=== PATIENT | female | born 1995 | race Caucasian/White ===

== ENCOUNTER 2016-08-29 13:25 | Outpatient (CLI) | payer SELFPAY ==
[2016-08-29 13:48] VITALS: BP 118/74
[2016-08-29] MEDS ORDERED: VISTARIL PO ONE (17:20)
== END 2016-08-29 17:58 | disposition home or self-care (01) ==
LOC: TRG 13:25
PROVIDERS: ATTEND Specialist
DX: O77.9 Labor and delivery complicated by fetal stress, unspecified (principal); O47.9 False labor, unspecified; Z3A.00 Weeks of gestation of pregnancy not specified
CPT/HCPCS: 59025; Q0177

== ENCOUNTER 2016-08-30 12:31 | Inpatient (IN) | payer OTHER ==
[2016-08-30] MEDS ORDERED: LACTATED RINGERS 1,000 ML ONE (15:05)
[2016-08-30] MEDS ORDERED: BRETHINE SUB-Q PRN (15:09)
[2016-08-30] MEDS ORDERED: ZOFRAN IV PRN (15:09)
[2016-08-30] MEDS ORDERED: SUBLIMAZE IV PRN (15:09)
[2016-08-30] MEDS ORDERED: MINERAL OIL PO PRN (15:09)
[2016-08-30] MEDS ORDERED: ePHEDrine SULFATE IV PRN ×2 (15:09→17:07)
[2016-08-30] MEDS ORDERED: STADOL IV PRN (15:09)
[2016-08-30] MEDS ORDERED: BRETHINE IVP PRN (15:09)
[2016-08-30] MEDS ORDERED: PITOCin/NS 30 UNIT/500ML 500 ML IV SCH ×2 (16:00→18:00)
[2016-08-30] MEDS ORDERED: PITOCin/NS 20 UNIT/1000ML DRIP 1,000 ML IV SCH (16:00)
[2016-08-30] MEDS ORDERED: LACTATED RINGERS 1,000 ML IV SCH (16:00)
[2016-08-30 16:33] LABS: Hematocrit 39.1 % (30.3-42.9); Hemoglobin 13.2 gm/dl (10.1-14.3); Mean Corpuscular HGB Conc 34 % (30-34); Mean Corpuscular Hemoglobin 32 pg (28-32); Mean Corpuscular Volume 96 fl (79-97); Platelet Count 275 K/mm3 (140-440); Red Blood Count 4.07 M/mm3 (3.65-5.03); Red Cell Distribution Width 13.6 % (13.2-15.2); White Blood Count 13.9 K/mm3 (4.5-11.0)
[2016-08-30] MEDS ORDERED: NARCAN 2 MG/2 ML IV PRN (17:07)
--- NOTE | 2016-08-30 17:08 | Anesthesia Consultation ---
Anesthesia Consult and Med Hx Date of service: 08/30/16 - Airway Anesthetic Teeth Evaluation: Good ROM Head & Neck: Adequate Mental/Hyoid Distance: Adequate Mallampati Class: Class II Intubation Access Assessment: Probably Good - Pulmonary Exam CTA: Yes - Cardiac Exam Cardiac Exam: RRR - Pre-Operative Health Status ASA Pre-Surgery Classification: ASA2 Proposed Anesthetic Plan: Epidural, Spinal - Pulmonary Hx Asthma: No COPD: No Hx Pneumonia: No - Cardiovascular System Hx Hypertension: No - Central Nervous System Hx Seizures: No Hx Psychiatric Problems: No - Endocrine Hx Renal Disease: No Hx End Stage Renal Disease: No Hx Hypothyroidism: No Hx Hyperthyroidism: No - Hematic Hx Anemia: No Hx Sickle Cell Disease: No - Other Systems Hx Alcohol Use: No - Additional Comments Anesthesia Medical History Comments: +
[2016-08-30] MEDS ORDERED: fentaNYL-BUPIV 2 MCG/ML-0.125% 100 ML EPIDURAL SCH (18:00)
--- NOTE | 2016-08-30 18:30 | History and Physical Report ---
History of Present Illness Date of examination: 08/30/16 Date of admission: 08/30/16 14:49 Chief complaint: I'm in labor History of present illness: Patient is a 21 year old who presents in active labor with EDC 09/08/2016. She started her care at 12 weeks at [facility]. She has had an uncomplicated course Past History Past Medical History: no pertinent history Past Surgical History: no surgical history Social history: single - Obstetrical History Expected Date of Delivery: 09/08/16 Actual Gestation: 38 Week(s) 5 Day(s) : 1 Medications and Allergies Allergies Allergy/AdvReac Type Severity Reaction Status Date / Time No Known Allergies Allergy Unverified 08/29/16 14:01 Home Medications Medication Instructions Recorded Confirmed Last Taken Type No Known Home Medications [No 08/30/16 08/30/16 Unknown History Reported Home Medications] Active Meds: Active Medications Butorphanol Tartrate (Stadol) 1 mg IV Q2H PRN PRN Reason: Pain, Moderate (4-6) Fentanyl (Sublimaze) 100 mcg IV Q2H PRN PRN Reason: Labor Pain Last Admin: 08/30/16 16:37 Dose: 100 mcg Lactated Ringer's (Lactated Ringers) 1,000 mls @ 125 mls/hr IV DIRECT ELSA Last Admin: 08/30/16 17:59 Dose: 125 mls/hr Oxytocin/Sodium Chloride (Pitocin/Ns 20 Unit/1000ml Drip) 1,000 mls @ 125 mls/ hr IV DIRECT ELSA Oxytocin/Sodium Chloride (Pitocin/Ns 30 Unit/500ml) 500 mls @ 1 mls/hr IV TITR ELSA; 1 MILLIUNITS/MIN PRN Reason: Protocol Fentanyl/Bupivacaine/Sodium Chlor (Fentanyl-Bupiv 2 Mcg/Ml-0.125%) 100 mls @ 12 mls/hr EPIDURAL TITR ELSA PRN Reason: Protocol Last Admin: 08/30/16 17:57 Dose: 12 mls/hr Oxytocin/Sodium Chloride (Pitocin/Ns 30 Unit/500ml) 500 mls @ 4 mls/hr IV TITR ELSA; 4 MILLIUNITS/MIN PRN Reason: Protocol Last Admin: 08/30/16 18:00 Dose: 4 mls/hr Mineral Oil (Mineral Oil) 30 ml PO QHS PRN PRN Reason: Constipation Ondansetron HCl (Zofran) 4 mg IV Q8H PRN PRN Reason: Nausea And Vomiting Review of Systems All systems: negative Genitourinary: leakage of fluid, contractions - Vital Signs Vital signs: Vital Signs Pulse BP 98 H 131/88 08/30/16 12:46 08/30/16 12:46 Temp Pulse Resp BP Pulse Ox 98.1 F 66 16 137/88 99 08/30/16 16:44 08/30/16 18:22 08/30/16 17:57 08/30/16 18:19 08/30/16 18:22 - Physical Exam Cardiovascular: Regular rate, Normal S1, Normal S2 Lungs: Positive: Clear to auscultation, Normal air movement Abdomen: Positive: normal appearance, soft, normal bowel sounds Genitourinary (Female): Positive: normal external genitalia, normal perenium Vulva: both: normal Vagina: Positive: normal moisture Uterus: Positive: normal size Extremities: Positive: normal - Obstetrical FHR: auscultation normal Cervical Dilatation: 4 Cervical Effacement Percentage: 90 station: -3 Uterine Contraction Pattern: Regular Uterine Contraction Intensity: Moderate Results Result Diagrams: 08/30/16 16:10 Abnormal lab results 08/30/16 Range/Units 16:10 WBC 13.9 H (4.5-11.0) K/mm3 All other labs normal. Assessment and Plan Patient is a 21 year old in active labor at 38.5 weeks. Admit to L&D. Augment if needed. Anticipate .
--- NOTE | 2016-08-30 22:53 | Procedure Note ---
OB Delivery Note - Delivery Date of Delivery: 08/30/16 Surgeon: TREVOR BEACH Estimated blood loss: 200cc - Vaginal Delivery presentation: vertex Delivery position: OA Intrapartum events: none Delivery induction: none Delivery augmentation: pitocin Delivery monitor: external FHT, external uterine Route of delivery: Delivery placenta: spontaneous Delivery cord: 3 umbilical vessels Episiotomy: none Delivery laceration: 2nd degree Delivery repair: vicryl Anesthesia: epidural Delivery comments: Viable male delivered over intact perineum with loose nuchal reduced on perineum. Apgars 8,9. Weight 7 pounds 3 ounces. Infant placed on maternal abdomen. Cord clamped and cut when done pulsing. Placenta delivered spontaneously and intact with 3vc. 2nd degree laceration repaired with 2.0 vicryl. Patient tolerated procedure well. Excellent hemostasis. - A at 1 minute: 8 at 5 minutes: 9 Gender: Male (7 pounds 3 ounces)
[2016-08-31] MEDS ORDERED: ZOFRAN IV PRN (00:11)
[2016-08-31] MEDS ORDERED: SODIUM CHLORIDE FLUSH SYRINGE 10 ML IV PRN (00:11)
[2016-08-31] MEDS ORDERED: PHENERGAN PO PRN (00:11)
[2016-08-31] MEDS ORDERED: TYLENOL PO PRN (00:11)
[2016-08-31] MEDS ORDERED: DERMOPLAST TP PRN (00:11)
[2016-08-31] MEDS ORDERED: NORCO 5/325 PO PRN (00:11)
[2016-08-31] MEDS ORDERED: LANSINOH TP PRN (00:11)
[2016-08-31] MEDS ORDERED: PHENERGAN PR PRN (00:11)
[2016-08-31] MEDS ORDERED: MILK OF MAGNESIA PO PRN (00:11)
[2016-08-31] MEDS ORDERED: DULCOLAX PR PRN (00:11)
[2016-08-31] MEDS ORDERED: TUCKS PAD TP PRN (00:11)
[2016-08-31] MEDS ORDERED: BENADRYL PO PRN (00:11)
[2016-08-31] MEDS: MOTRIN PO SCH ×5 (01:15→23:34)
--- NOTE | 2016-08-31 08:54 | Progress Note ---
Assessment and Plan PPD 1 s/p . Doing well. Plan for discharge on tomorrow. Subjective - Subjective Date of service: 08/31/16 Interval history: Patient is a 21 year old who presents in active labor with EDC 09/08/2016. She started her care at 12 weeks at [facility]. She has had an uncomplicated course Patient reports: appetite normal, voiding normally, pain well controlled [place]: doing well Objective - Vital Signs Latest vital signs: Vital Signs Temp Pulse Pulse Resp BP BP Pulse Ox 08/31/16 04:30 97.9 F 81 18 120/67 08/31/16 00:55 99.3 F 58 L 18 133/81 08/30/16 23:33 62 125/78 08/30/16 23:18 80 135/77 08/30/16 23:03 80 139/79 08/30/16 22:48 77 138/65 08/30/16 22:42 89 94 08/30/16 22:37 78 98 08/30/16 22:33 81 94/46 08/30/16 22:32 71 97 08/30/16 22:27 88 97 08/30/16 22:22 76 96 08/30/16 22:18 65 89 08/30/16 22:17 77 98 08/30/16 22:12 71 94 08/30/16 22:07 58 L 97 08/30/16 22:05 72 186/99 93 08/30/16 22:02 73 98 08/30/16 21:59 58 L 93 08/30/16 21:57 63 99 08/30/16 21:52 65 85 08/30/16 21:49 70 146/90 08/30/16 21:47 64 100 08/30/16 21:46 91 08/30/16 21:38 70 94 08/30/16 21:34 67 142/92 08/30/16 21:33 65 100 08/30/16 21:29 70 91 08/30/16 21:28 69 98 08/30/16 21:23 69 94 08/30/16 21:20 98.1 F 08/30/16 21:18 67 133/90 91 08/30/16 21:13 74 99 08/30/16 21:08 60 98 08/30/16 21:04 76 92 08/30/16 21:03 63 99 08/30/16 20:58 65 99 08/30/16 20:53 76 97 08/30/16 20:51 69 94 08/30/16 20:49 68 155/92 08/30/16 20:48 72 99 08/30/16 20:43 68 99 08/30/16 20:38 67 97 08/30/16 20:35 83 154/112 81 L 08/30/16 20:33 86 97 08/30/16 20:28 66 94 08/30/16 20:27 68 94 08/30/16 20:23 80 97 08/30/16 20:19 74 133/82 08/30/16 20:18 72 97 08/30/16 20:13 85 96 08/30/16 20:08 76 98 08/30/16 20:04 74 130/84 08/30/16 20:03 71 98 08/30/16 19:58 69 97 08/30/16 19:53 74 98 08/30/16 19:49 76 140/85 08/30/16 19:48 71 97 08/30/16 19:43 71 97 08/30/16 19:38 76 98 08/30/16 19:33 74 161/95 08/30/16 19:32 77 95 08/30/16 19:29 75 94 08/30/16 19:28 69 98 08/30/16 19:23 67 97 08/30/16 19:18 63 134/82 98 08/30/16 19:13 72 98 08/30/16 19:12 98.1 F 18 08/30/16 19:08 82 98 08/30/16 19:04 78 136/89 08/30/16 19:03 83 97 08/30/16 19:00 65 94 08/30/16 18:58 72 99 08/30/16 18:53 76 97 08/30/16 18:50 79 94 08/30/16 18:48 75 142/91 96 08/30/16 18:43 77 97 08/30/16 18:38 77 92 08/30/16 18:37 85 93 08/30/16 18:35 77 130/87 08/30/16 18:33 70 99 08/30/16 18:27 77 99 08/30/16 18:22 66 99 08/30/16 18:19 75 137/88 08/30/16 18:18 69 99 08/30/16 18:13 81 92 08/30/16 18:08 69 98 08/30/16 18:05 71 90 08/30/16 18:04 74 137/84 08/30/16 18:03 79 90 08/30/16 17:58 75 98 08/30/16 17:57 16 08/30/16 17:53 77 99 08/30/16 17:49 72 130/85 08/30/16 17:48 82 99 08/30/16 17:43 74 98 08/30/16 17:38 74 99 08/30/16 17:35 67 135/85 08/30/16 17:33 77 99 08/30/16 17:28 80 97 08/30/16 17:27 68 135/62 08/30/16 17:21 72 131/77 08/30/16 17:18 93 H 123/68 98 08/30/16 17:14 86 86 08/30/16 17:13 96 H 98 08/30/16 17:08 103 H 98 08/30/16 17:03 85 97 08/30/16 16:44 98.1 F 16 97 08/30/16 16:36 86 136/87 08/30/16 13:17 89 97 08/30/16 13:11 94 H 96 08/30/16 13:06 91 H 97 08/30/16 13:01 81 97 08/30/16 12:57 92 H 97 08/30/16 12:51 84 97 08/30/16 12:50 98.2 F 90 18 131/88 97 08/30/16 12:47 102 H 97 08/30/16 12:46 98 H 131/88 Intake and Output 08/30/16 08/31/16 08/31/16 22:59 06:59 14:59 Intake Total 4123 Output Total 1000 Balance 3123 Intake: IV 2225 Lactated Ringers 1,000 ml 900 @ 125 mls/hr IV DIRECT ELSA Rx#:[id number] PITOCin/NS 20 UNIT/1000ML 425 DRIP 1,000 ML @ 125 mls/ hr IV DIRECT ELSA Rx#: [id number] PITOCin/NS 30 UNIT/500ML 900 500 ML @ 4 MILLIUNITS/MIN 4 mls/hr IV TITR ELSA Rx# :[id number] Intake, Free Water 240 Other 1658 Output: Urine 1000 Indwelling Catheter 250 Void 750 Other: Intake, Other Source Saline Solution Total, Intake Amount 1658 Total, Output Amount 600 # Voids Void 1 Estimated Blood Loss 200 - Exam Cardiovascular: Present: Regular rate, Normal S1, Normal S2 Lungs: Present: Clear to auscultation, Normal air movement Abdomen: Present: normal appearance, soft, normal bowel sounds Uterus: Present: normal, firm Extremities: Present: normal - Labs Labs: Abnormal lab results 08/30/16 Range/Units 16:10 WBC 13.9 H (4.5-11.0) K/mm3
[2016-08-31 11:27] LABS: Hematocrit 31.5 % (30.3-42.9); Hemoglobin 10.4 gm/dl (10.1-14.3)
[2016-08-31] MEDS: PRENATAL VITAMIN PO SCH (12:30)
[2016-08-31] MEDS: COLACE PO SCH ×2 (12:30→23:35)
[2016-09-01] MEDS: MOTRIN PO SCH ×2 (06:13→11:38)
--- NOTE | 2016-09-01 06:23 | Discharge Summary ---
Providers - Providers Date of Admission: 08/30/16 14:49 Date of discharge: 09/01/16 Attending physician: ALVARO JACKSON Primary care physician: ALVARO JACKSON Hospitalization Reason for admission: active labor Delivery: Procedure details: s/p Episiotomy: none Laceration: 2nd degree Incision: normal, intact Other procedures: none complications: none Discharge diagnosis: IUP at term delivered Tamms baby: male Hospital course: routine post op course Condition at discharge: Good Disposition: DISCHARGED TO HOME OR SELFCARE - Discharge Diagnoses (1) (normal spontaneous vaginal delivery) Status: Acute Plan - Discharge Medications Prescriptions: HYDROcodone/APAP 5-325 [[place] 5-325 mg TAB] 2 each PO Q6H PRN #30 tablet PRN Reason: Pain, Moderate (4-6) Ibuprofen [Motrin 600 MG tab] 600 mg PO Q6HR #30 tablet - Provider Discharge Summary Activity: routine, no sex for 6 weeks, no heavy lifting 4 weeks, no strenuous exercise Diet: routine Instructions: routine Additional instructions: [] Smoking cessation referral if applicable(refer to patient education folder for contact #) [] Refer to [facility]'s [facility] Booklet Call your doctor immediately for: * Fever > 100.5 * Heavy vaginal bleeding ( >1 pad per hour) * Severe persistent headache * Shortness of breath * Reddened, hot, painful area to leg or breast * Drainage or odor from incision. * Keep incision clean and dry at all times and follow doctor's instructions regarding bathing/showering - Follow up plan Follow up: ALVARO JACKSON MD [Primary Care Provider] - 6 Weeks
[2016-09-01 09:20] VITALS: BP 128/80
[2016-09-01] MEDS: COLACE PO SCH (11:53)
[2016-09-01] MEDS: PRENATAL VITAMIN PO SCH (11:53)
== END 2016-09-01 15:17 | disposition home or self-care (01) | DRG 775 ==
LOC: TRG 12:31 → LD 14:49 → OB 08-31 00:32
PROVIDERS: ADMIT Specialist; ATTEND Specialist
PROC: 10E0XZZ Delivery of Products of Conception, External Approach (ICD-10-PCS; principal; 2016-08-30)
PROC: 0KQM0ZZ Repair Perineum Muscle, Open Approach (ICD-10-PCS; 2016-08-30)
PROC: 3E0S3CZ (ICD-10-PCS; 2016-08-30)
PROC: 00HU33Z Insertion of Infusion Device into Spinal Canal, Percutaneous Approach (ICD-10-PCS; 2016-08-30)
DX: O69.81X0 Labor and delivery complicated by cord around neck, without compression, not applicable or unspecified (principal); O70.1 Second degree perineal laceration during delivery; Z37.0 Single live birth; Z3A.38 38 weeks gestation of pregnancy
CPT/HCPCS: 36415; 85014; 85018; 85027; 86850; 86900; 86901; 99211; G0463; J2590; J3010; J7120

== ENCOUNTER 2020-12-02 21:20 | Outpatient (CLI) | payer SELFPAY ==
[2020-12-02 21:55] VITALS: BP 122/77
[2020-12-02] MEDS ORDERED: LACTATED RINGERS 1,000 ML IV ONE (22:29)
[2020-12-02] MEDS ORDERED: MORPHINE 4 MG/1 ML INJ IV ONE (22:29)
[2020-12-02] MEDS ORDERED: hydrOXYzine HCL 100 MG/2 ML INJ IM ONE (22:30)
[2020-12-03] MEDS ORDERED: MORPHINE 4 MG/1 ML INJ IV ONE (00:39)
== END 2020-12-03 00:58 | disposition home or self-care (01) ==
LOC: TRG 21:20 → APU 21:23 → TRG 12-03 00:58
PROVIDERS: ATTEND Obstetrics & Gynecology
DX: O62.9 Abnormality of forces of labor, unspecified (principal); O13.3 Gestational [pregnancy-induced] hypertension without significant proteinuria, third trimester; Z3A.37 37 weeks gestation of pregnancy
CPT/HCPCS: 96361; 96372; 96374; J2270; J3410; J7120

== ENCOUNTER 2020-12-11 17:10 | Inpatient (IN) | payer OTHER ==
[2020-12-11] MEDS ORDERED: ACETAMINOPHEN 325 MG TAB PO PRN (22:19)
[2020-12-11] MEDS ORDERED: TERBUTALINE 1 MG/1 ML INJ SUB-Q PRN (22:19)
[2020-12-11] MEDS ORDERED: ePHEDrine SULFATE 50 MG/1 ML INJ IV PRN (22:19)
[2020-12-11] MEDS ORDERED: NALOXONE 0.4 MG/1 ML INJ IV PRN (22:19)
[2020-12-11] MEDS ORDERED: PROMETHAZINE 25 MG TAB PO PRN (22:19)
[2020-12-11] MEDS ORDERED: BUTORPHANOL 2 MG/1 ML INJ IV PRN ×2 (22:19)
[2020-12-11] MEDS ORDERED: MINERAL OIL 30 ML ORAL LIQD PO PRN (22:19)
[2020-12-11] MEDS ORDERED: LIDOCAINE (2%) 20 MG/1 ML VIAL 20 ML MDV INFILTRATI ONE (22:19)
--- NOTE | 2020-12-11 22:51 | History and Physical Report ---
History of Present Illness Date of examination: 12/11/20 Date of admission: 12/11/20 Chief complaint: contractions, early labor History of present illness: 25 yo at 39w1d MELINDA 12/17/20 with PNC at [facility] c/b hx PIH in previous , elevated 1hr GTT, nl 3 hr GTT presenting with contractions, found to be in early labor, 3 cm. Reported possible ROM, but Amni+ negative. Denies vaginal bleeding. No PIH symptoms. PNC reviewed A pos, Ab neg Hct 36.1 Pap NILM Rubella Immune RPR NR Ucx neg HbSAG NR HIV neg GCCT neg MSAFP neg 1hr GTT 136 3hr GTT 71/151/125/117 GBS neg Past History Past Medical History: no pertinent history Past Surgical History: no surgical history Family/Genetic History: none Social history: no significant social history - Obstetrical History : 2 Para: 1 Hx # Term Pregnancies: 1 Number of Living Children: 1 Medications and Allergies Allergies Allergy/AdvReac Type Severity Reaction Status Date / Time azithromycin Allergy Itching Verified 12/02/20 22:29 Home Medications Medication Instructions Recorded Confirmed Last Taken Type HYDROcodone/APAP 5-325 [[place] 2 each PO Q6H PRN #30 tablet 09/01/16 Unknown Rx 5-325 mg TAB] Ibuprofen [Motrin 600 MG tab] 600 mg PO Q6HR #30 tablet 09/01/16 Unknown Rx Active Meds: Active Medications Acetaminophen (Acetaminophen 325 Mg Tab) 650 mg PO Q4H PRN PRN Reason: Pain, Mild (1-3) Butorphanol Tartrate (Butorphanol 2 Mg/1 Ml Inj) 1 mg IV Q2H PRN PRN Reason: Pain, Moderate(4-6) LABOR PAIN Butorphanol Tartrate (Butorphanol 2 Mg/1 Ml Inj) 2 mg IV Q2H PRN PRN Reason: Pain , Severe (7-10) Ephedrine Sulfate (Ephedrine Sulfate 50 Mg/1 Ml Inj) 10 mg IV Q2M PRN PRN Reason: Hypotension Oxytocin/Sodium Chloride (Pitocin/Ns 30 Unit/500ml) 30 units in 500 mls @ 2 mls/hr IV TITR ELSA; Protocol Lactated Ringer's (Lactated Ringers) 1,000 mls @ 125 mls/hr IV DIRECT ELSA Oxytocin/Sodium Chloride (Pitocin/Ns 30 Unit/500ml) 30 units in 500 mls @ 40 mls/hr IV TITR ELSA; Protocol Mineral Oil (Mineral Oil 30 Ml Oral Liqd) 30 ml PO QHS PRN PRN Reason: Constipation Naloxone HCl (Naloxone 0.4 Mg/1 Ml Inj) 0.1 mg IV Q2MIN PRN PRN Reason: Res Rate </= 8 or 02 SAT < 92% Promethazine HCl (Promethazine 25 Mg Tab) 25 mg PO Q6H PRN PRN Reason: Nausea And Vomiting Terbutaline Sulfate (Terbutaline 1 Mg/1 Ml Inj) 0.25 mg SUB-Q ONCE PRN PRN Reason: Hyperstimulation/Hypertonicity Review of Systems All systems: negative (expect HPI) - Vital Signs Vital signs: Vital Signs Pulse BP 105 H 128/82 12/11/20 17:51 12/11/20 17:51 Temp Pulse Resp BP Pulse Ox 98.6 F 85 18 140/83 98 12/11/20 17:53 12/11/20 22:37 12/11/20 17:53 12/11/20 22:27 12/11/20 22:37 - Physical Exam Abdomen: Positive: normal appearance, normal bowel sounds, other (gravid) - Obstetrical FHR: category 1 Uterine Contraction Monitor Mode: External Cervical Dilatation: 3 Cervical Effacement Percentage: 80 station: -1 Uterine Contraction Frequency (min): 5 Uterine Contraction Pattern: Irregular Results All other labs normal. Assessment and Plan - Patient Problems (1) Current Visit: Yes Status: Acute Qualifiers: Weeks of gestation: 39 weeks Qualified Code(s): Z3A.39 - 39 weeks gestation of Plan to address problem: Admit of IOL for early labor at 3 cm at term --Pitocin prn IOL --Epidural prn pain --GBS neg --Anticipate
[2020-12-11] MEDS ORDERED: OXYTOCIN DRIP 30 UNITS/500 ML BAG IV SCH ×2 (23:00)
[2020-12-11 23:03] LABS: Hematocrit 30.5 % (30.3-42.9); Hemoglobin 10.3 gm/dl (10.1-14.3); Mean Corpuscular HGB Conc 34 % (30-34); Mean Corpuscular Volume 88 fl (79-97); Platelet Count 262 K/mm3 (140-440); Red Blood Count 3.45 M/mm3 (3.65-5.03); Red Cell Distribution Width 13.8 % (13.2-15.2)
[2020-12-11] MEDS: LACTATED RINGERS 1,000 ML IV SCH (23:14)
[2020-12-12] MEDS: LACTATED RINGERS 1,000 ML IV SCH ×2 (03:41→10:32)
--- NOTE | 2020-12-12 04:15 | Progress Note ---
Labor Epidural - Labor Epidural Start Time: 03:40 Stop Time: 03:44 Performed by:: AXEL FOSTER Procedure: Patient is requesting a laboring epidural for laboring pain. Patient IDed, H&P reviewed, all questions and concerns were answered, and consent was signed. Timeout was performed at bedside. Patient in sitting position. Sterile prep and drape was performed. [3] ml of 1% lidocaine skin wheal at L[4]- L [5]. 18- gauge Tuohy epidural needle was advanced to loss of resistance with saline technique 5cm. Single dural perforation via 27 guage spinal needle placed through the shaft of Epidural needle. Positive CSF via spinal needle. Negative CSF, negative blood via Epidural needle. Epidural catheter advanced to [10] centimeters. [NEGATIVE] Aspiration [NEGATIVE] test dose. Negative Paresthesia. Sterile dressing applied. Patient tolerated procedure.
[2020-12-12] MEDS ORDERED: ePHEDrine SULFATE 50 MG/1 ML INJ IV PRN (04:20)
[2020-12-12] MEDS ORDERED: NALOXONE 2 MG/2 ML INJ IV PRN (04:20)
--- NOTE | 2020-12-12 04:20 | Anesthesia Consultation ---
Anesthesia Consult and Med Hx Date of service: 12/12/20 - Airway Anesthetic Teeth Evaluation: Good ROM Head & Neck: Adequate Mental/Hyoid Distance: Adequate Mallampati Class: Class II Intubation Access Assessment: Good - Pulmonary Exam CTA: Yes - Cardiac Exam Cardiac Exam: RRR - Pre-Operative Health Status ASA Pre-Surgery Classification: ASA2 Proposed Anesthetic Plan: Epidural - Pulmonary Hx Smoking: No Hx Asthma: No Hx Respiratory Symptoms: No SOB: No COPD: No Home Oxygen Therapy: No Hx Pneumonia: No Hx Sleep Apnea: No - Cardiovascular System Hx Hypertension: No Hx Coronary Artery Disease: No Hx Heart Attack/AMI: No Hx Angina: No Hx Percutaneous Transluminal Coronary Angioplasty (PTCA): No Hx Cardia Arrhythmia: No Hx Pacemaker: No Hx Internal Defibrillator: No Hx Valvular Heart Disease: No Hx Heart Murmur: No Hx Peripheral Vascular Disease: No - Central Nervous System Hx Neuromuscular Disorder: No Hx Seizures: No CVA: No Hx Back Pain: No Hx Psychiatric Problems: No - Gastrointestinal Hx Ulcer: No Hx Gastroesophageal Reflux Disease: Yes - Endocrine Hx Renal Disease: No Hx End Stage Renal Disease: No Hx Cirrhosis: No Hx Liver Disease: No Hx Insulin Dependent Diabetes: No Hx Non-Insulin Dependent Diabetes: No Hx Thyroid Disease: No Hx Hypothyroidism: No Hx Hyperthyroidism: No - Hematic Hx Anemia: No Hx Sickle Cell Disease: No - Other Systems Hx Alcohol Use: No Hx Substance Use: No Hx Cancer: No Hx Obesity: No
[2020-12-12] MEDS ORDERED: fentaNYL-BUPIV 2 MCG/ML-0.125% 200 MCG/100 ML BAG EPIDURAL SCH (05:00)
--- NOTE | 2020-12-12 10:23 | Progress Note ---
Assessment and Plan A: IUP @ 39 2/7 Weeks Category I Tracing Active Labor GBS Negative P: IUPC Placed Continue Pitocin Augmentation Multiple Maternal Position Changes Subjective - Subjective Date of service: 12/12/20 Principal diagnosis: Early Labor Patient reports: movement normal, other (Resting well under epidural anesthesia; starting to feel a slight amount of lower abd pressure) Objective - Vital Signs Vital Signs: Vital Signs - 12hr 12/11/20 12/11/20 12/11/20 22:27 22:32 22:37 Temperature Pulse Rate 84 87 85 Respiratory Rate Blood Pressure 140/83 Blood Pressure [Right] O2 Sat by Pulse 98 98 98 Oximetry 12/11/20 12/11/20 12/11/20 22:42 22:47 22:52 Temperature Pulse Rate 90 92 H 95 H Respiratory Rate Blood Pressure Blood Pressure [Right] O2 Sat by Pulse 98 99 98 Oximetry 12/11/20 12/11/20 12/11/20 22:57 23:02 23:07 Temperature Pulse Rate 101 H 87 99 H Respiratory Rate Blood Pressure Blood Pressure [Right] O2 Sat by Pulse 98 99 98 Oximetry 12/11/20 12/11/20 12/11/20 23:12 23:15 23:17 Temperature Pulse Rate 89 97 H 98 H Respiratory Rate Blood Pressure 116/67 Blood Pressure [Right] O2 Sat by Pulse 98 98 Oximetry 12/11/20 12/11/20 12/11/20 23:22 23:27 23:30 Temperature 98.1 F Pulse Rate 89 93 H 80 Respiratory 18 Rate Blood Pressure Blood Pressure 116/67 [Right] O2 Sat by Pulse 99 99 Oximetry 12/11/20 12/11/20 12/11/20 23:32 23:37 23:42 Temperature Pulse Rate 90 100 H 83 Respiratory Rate Blood Pressure Blood Pressure [Right] O2 Sat by Pulse 98 99 98 Oximetry 12/11/20 12/11/20 12/11/20 23:47 23:52 23:57 Temperature Pulse Rate 76 80 91 H Respiratory Rate Blood Pressure Blood Pressure [Right] O2 Sat by Pulse 99 98 99 Oximetry 12/12/20 12/12/20 12/12/20 00:02 00:03 00:07 Temperature Pulse Rate 94 H 83 93 H Respiratory Rate Blood Pressure 109/59 Blood Pressure [Right] O2 Sat by Pulse 99 98 Oximetry 12/12/20 12/12/2012/12/21 00:12 00:17 00:22 Temperature Pulse Rate 91 H 79 69 Respiratory Rate Blood Pressure Blood Pressure [Right] O2 Sat by Pulse 99 98 100 Oximetry 12/12/20 12/12/20 12/12/20 00:27 00:32 00:34 Temperature Pulse Rate 79 76 75 Respiratory Rate Blood Pressure 117/71 Blood Pressure [Right] O2 Sat by Pulse 99 99 Oximetry 12/12/20 12/12/20 12/12/20 00:37 00:42 00:47 Temperature Pulse Rate 89 90 71 Respiratory Rate Blood Pressure Blood Pressure [Right] O2 Sat by Pulse 99 100 100 Oximetry 12/12/20 12/12/20 12/12/20 00:52 00:57 01:02 Temperature Pulse Rate 78 81 81 Respiratory Rate Blood Pressure Blood Pressure [Right] O2 Sat by Pulse 99 100 99 Oximetry 12/12/20 12/12/20 12/12/20 01:03 01:07 01:12 Temperature Pulse Rate 80 85 77 Respiratory Rate Blood Pressure 120/75 Blood Pressure [Right] O2 Sat by Pulse 99 99 Oximetry 12/12/20 12/12/20 12/12/20 01:17 01:22 01:27 Temperature Pulse Rate 87 68 63 Respiratory Rate Blood Pressure Blood Pressure [Right] O2 Sat by Pulse 100 100 100 Oximetry 12/12/20 12/12/20 12/12/20 01:32 01:35 01:37 Temperature Pulse Rate 73 80 68 Respiratory Rate Blood Pressure 123/75 Blood Pressure [Right] O2 Sat by Pulse 100 100 Oximetry 12/12/20 12/12/20 12/12/20 01:42 01:51 01:56 Temperature Pulse Rate 84 79 69 Respiratory Rate Blood Pressure Blood Pressure [Right] O2 Sat by Pulse 100 100 99 Oximetry 12/12/20 12/12/20 12/12/20 02:01 02:03 02:06 Temperature Pulse Rate 70 80 67 Respiratory Rate Blood Pressure 116/67 Blood Pressure [Right] O2 Sat by Pulse 100 100 Oximetry 12/12/20 12/12/20 12/12/20 02:11 02:16 02:21 Temperature Pulse Rate 67 70 73 Respiratory Rate Blood Pressure Blood Pressure [Right] O2 Sat by Pulse 100 100 100 Oximetry 12/12/20 12/12/20 12/12/20 02:26 02:31 02:35 Temperature Pulse Rate 64 78 71 Respiratory Rate Blood Pressure 125/70 Blood Pressure [Right] O2 Sat by Pulse 100 100 Oximetry 12/12/20 12/12/20 12/12/20 02:36 02:41 02:46 Temperature Pulse Rate 79 77 71 Respiratory Rate Blood Pressure Blood Pressure [Right] O2 Sat by Pulse 100 100 100 Oximetry 12/12/20 12/12/20 12/12/20 02:51 02:56 03:01 Temperature Pulse Rate 86 68 77 Respiratory Rate Blood Pressure Blood Pressure [Right] O2 Sat by Pulse 100 100 100 Oximetry 12/12/20 12/12/20 12/12/20 03:04 03:06 03:11 Temperature Pulse Rate 64 80 55 L Respiratory Rate Blood Pressure 116/69 Blood Pressure [Right] O2 Sat by Pulse 99 100 Oximetry 12/12/20 12/12/20 12/12/20 03:16 03:21 03:26 Temperature Pulse Rate 66 73 83 Respiratory Rate Blood Pressure Blood Pressure [Right] O2 Sat by Pulse 100 100 100 Oximetry 12/12/20 12/12/20 12/12/20 03:31 03:35 03:36 Temperature Pulse Rate 88 77 83 Respiratory Rate Blood Pressure 120/75 Blood Pressure [Right] O2 Sat by Pulse 100 100 Oximetry 12/12/20 12/12/20 12/12/20 03:41 03:44 03:46 Temperature Pulse Rate 77 80 73 Respiratory Rate Blood Pressure 124/71 127/76 Blood Pressure [Right] O2 Sat by Pulse 100 100 Oximetry 12/12/20 12/12/20 12/12/20 03:48 03:51 03:54 Temperature Pulse Rate 87 64 65 Respiratory Rate Blood Pressure 133/89 120/66 99/57 Blood Pressure [Right] O2 Sat by Pulse 100 Oximetry 12/12/20 12/12/20 12/12/20 03:56 03:58 04:00 Temperature Pulse Rate 72 60 62 Respiratory Rate Blood Pressure 109/59 113/59 115/65 Blood Pressure [Right] O2 Sat by Pulse 100 Oximetry 12/12/20 12/12/20 12/12/20 04:01 04:02 04:05 Temperature 97.9 F Pulse Rate 63 62 63 Respiratory 16 Rate Blood Pressure 110/58 Blood Pressure 110/58 [Right] O2 Sat by Pulse 99 100 Oximetry 12/12/20 12/12/20 12/12/20 04:06 04:11 04:16 Temperature Pulse Rate 59 L 60 59 L Respiratory Rate Blood Pressure Blood Pressure [Right] O2 Sat by Pulse 100 99 98 Oximetry 12/12/20 12/12/20 12/12/20 04:21 04:26 04:31 Temperature Pulse Rate 82 72 61 Respiratory Rate Blood Pressure 120/60 Blood Pressure [Right] O2 Sat by Pulse 98 98 98 Oximetry 12/12/20 12/12/20 12/12/20 04:36 04:41 04:46 Temperature Pulse Rate 66 61 63 Respiratory Rate Blood Pressure Blood Pressure [Right] O2 Sat by Pulse 98 99 98 Oximetry 12/12/20 12/12/20 12/12/20 04:51 04:52 04:56 Temperature Pulse Rate 72 80 85 Respiratory Rate Blood Pressure 100/51 Blood Pressure [Right] O2 Sat by Pulse 98 98 Oximetry 12/12/20 12/12/20 12/12/20 05:01 05:06 05:11 Temperature Pulse Rate 96 H 88 66 Respiratory Rate Blood Pressure 109/65 Blood Pressure [Right] O2 Sat by Pulse 98 98 98 Oximetry 12/12/20 12/12/20 12/12/20 05:16 05:21 05:26 Temperature Pulse Rate 59 L 70 63 Respiratory Rate Blood Pressure Blood Pressure [Right] O2 Sat by Pulse 99 98 98 Oximetry 12/12/20 12/12/20 12/12/20 05:31 05:33 05:36 Temperature Pulse Rate 72 57 L 62 Respiratory Rate Blood Pressure 102/63 Blood Pressure [Right] O2 Sat by Pulse 99 99 Oximetry 12/12/20 12/12/20 12/12/20 05:41 05:46 05:51 Temperature Pulse Rate 74 63 66 Respiratory Rate Blood Pressure Blood Pressure [Right] O2 Sat by Pulse 99 99 99 Oximetry 12/12/20 12/12/20 12/12/20 05:52 05:56 06:01 Temperature Pulse Rate 52 L 55 L 58 L Respiratory Rate Blood Pressure 97/57 Blood Pressure [Right] O2 Sat by Pulse 99 99 Oximetry 12/12/20 12/12/20 12/12/20 06:06 06:11 06:12 Temperature Pulse Rate 59 L 63 77 Respiratory Rate Blood Pressure 97/53 Blood Pressure [Right] O2 Sat by Pulse 98 98 Oximetry 12/12/20 12/12/20 12/12/20 06:16 06:21 06:26 Temperature Pulse Rate 72 63 52 L Respiratory Rate Blood Pressure Blood Pressure [Right] O2 Sat by Pulse 99 99 99 Oximetry 12/12/20 12/12/20 12/12/20 06:31 06:36 06:41 Temperature Pulse Rate 65 54 L 70 Respiratory Rate Blood Pressure 99/56 Blood Pressure [Right] O2 Sat by Pulse 99 98 97 Oximetry 12/12/20 12/12/20 12/12/20 06:46 06:51 06:52 Temperature Pulse Rate 53 L 61 67 Respiratory Rate Blood Pressure 100/55 Blood Pressure [Right] O2 Sat by Pulse 99 99 Oximetry 12/12/20 12/12/20 12/12/20 06:56 07:01 07:06 Temperature 97.6 F Pulse Rate 60 70 71 Respiratory 18 Rate Blood Pressure Blood Pressure [Right] O2 Sat by Pulse 100 100 98 Oximetry 12/12/20 12/12/20 12/12/20 07:11 07:12 07:16 Temperature Pulse Rate 77 81 67 Respiratory Rate Blood Pressure 102/60 Blood Pressure [Right] O2 Sat by Pulse 100 100 Oximetry 12/12/20 12/12/20 12/12/20 07:21 07:26 07:31 Temperature Pulse Rate 74 62 60 Respiratory Rate Blood Pressure Blood Pressure [Right] O2 Sat by Pulse 100 99 100 Oximetry 12/12/20 12/12/20 12/12/20 07:36 07:41 07:46 Temperature Pulse Rate 63 54 L 67 Respiratory Rate Blood Pressure Blood Pressure [Right] O2 Sat by Pulse 99 99 99 Oximetry 12/12/20 12/12/20 12/12/20 07:51 07:56 08:00 Temperature 97.6 F Pulse Rate 65 66 Respiratory 16 Rate Blood Pressure Blood Pressure [Right] O2 Sat by Pulse 100 100 98 Oximetry 12/12/20 12/12/20 12/12/20 08:01 08:03 08:06 Temperature Pulse Rate 69 70 74 Respiratory Rate Blood Pressure 110/67 Blood Pressure [Right] O2 Sat by Pulse 100 100 Oximetry 12/12/20 12/12/20 12/12/20 08:11 08:16 08:19 Temperature Pulse Rate 69 65 78 Respiratory Rate Blood Pressure 108/66 Blood Pressure [Right] O2 Sat by Pulse 100 100 Oximetry 12/12/20 12/12/20 12/12/20 08:21 08:26 08:31 Temperature Pulse Rate 58 L 63 89 Respiratory Rate Blood Pressure Blood Pressure [Right] O2 Sat by Pulse 100 100 100 Oximetry 12/12/20 12/12/20 12/12/20 08:36 08:41 08:46 Temperature Pulse Rate 74 77 79 Respiratory Rate Blood Pressure Blood Pressure [Right] O2 Sat by Pulse 100 100 100 Oximetry 12/12/20 12/12/20 12/12/20 08:51 08:56 09:01 Temperature Pulse Rate 116 H 90 63 Respiratory Rate Blood Pressure Blood Pressure [Right] O2 Sat by Pulse 100 100 100 Oximetry 12/12/20 12/12/20 12/12/20 09:06 09:11 09:16 Temperature Pulse Rate 75 89 74 Respiratory Rate Blood Pressure Blood Pressure [Right] O2 Sat by Pulse 100 100 100 Oximetry 12/12/20 12/12/20 12/12/20 09:19 09:21 09:26 Temperature Pulse Rate 71 74 98 H Respiratory Rate Blood Pressure 109/70 Blood Pressure [Right] O2 Sat by Pulse 100 100 Oximetry 12/12/20 12/12/20 12/12/20 09:31 09:36 09:41 Temperature Pulse Rate 93 H 77 67 Respiratory Rate Blood Pressure Blood Pressure [Right] O2 Sat by Pulse 100 100 100 Oximetry 12/12/20 12/12/20 12/12/20 09:46 09:51 09:56 Temperature Pulse Rate 69 73 75 Respiratory Rate Blood Pressure Blood Pressure [Right] O2 Sat by Pulse 100 99 100 Oximetry 12/12/20 12/12/20 12/12/20 10:01 10:06 10:11 Temperature Pulse Rate 99 H 74 74 Respiratory Rate Blood Pressure Blood Pressure [Right] O2 Sat by Pulse 99 100 100 Oximetry 12/12/20 10:16 Temperature Pulse Rate 77 Respiratory Rate Blood Pressure Blood Pressure [Right] O2 Sat by Pulse 100 Oximetry - Exam Breasts: normal Cardiovascular: Regular rate Lungs: Clear to auscultation, Normal air movement Abdomen: Present: normal appearance, soft, normal bowel sounds Uterus: Present: normal, firm, fundal height below umbilicus FHR: category 1 Uterine Contraction Monitor Mode: Internal Cervical Dilatation: 6 (leaking a small amount of clear fluid) Cervical Effacement Percentage: 80 station: -2 Uterine Contraction Pattern: Regular Uterine Tone Measurement Phase: Resting Uterine Contraction Intensity: Moderate Extremities: normal - Labs Labs: Abnormal Labs 12/11/20 22:40 RBC 3.45 L Laboratory Results - last 24 hr 12/11/20 12/11/20 12/11/20 18:10 22:40 22:40 WBC 9.1 RBC 3.45 L Hgb 10.3 Hct 30.5 MCV 88 MCH 30 MCHC 34 RDW 13.8 Plt Count 262 Membranes Rupture Negative Syphilis IgG Antibody Nonreactive Blood Type Antibody Screen 12/11/20 22:40 WBC RBC Hgb Hct MCV MCH MCHC RDW Plt Count Membranes Rupture Syphilis IgG Antibody Blood Type A POSITIVE Antibody Screen Negative
[2020-12-12] MEDS ORDERED: LIDOCAINE (2%) 20 MG/1 ML VIAL 20 ML MDV INFILTRATI ONE (10:50)
--- NOTE | 2020-12-12 11:57 | Procedure Note ---
OB Delivery Note - Delivery Date of Delivery: 12/12/20 (1134) Surgeon: ROSIE BOOGIE Estimated blood loss: 100cc - Vaginal Delivery presentation: vertex Delivery position: OA Intrapartum events: extend. bradycardia Delivery induction: oxytocin Delivery augmentation: pitocin Delivery monitor: external FHT, internal uterine Route of delivery: Delivery placenta: spontaneous Delivery cord: 3 umbilical vessels Episiotomy: none Delivery laceration: none Anesthesia: epidural Delivery comments: of a live 8'6 male over a intact perineum under epidural anesthesia with Apgars of 8 and 9 at 1134 on 12/12/2020. directly to maternal abd/chest, skin to skin contact. Spontaneous delivery of placenta complete and intact with Prince side presenting at 1138. Fundus is firm and midline located 4 below the U. Lochia is scant. Delayed cord clamping and cutting; Cord cut by the Father of the Baby. Placenta discarded. - Infant A at 1 minute: 8 at 5 minutes: 9 Gender: Male (8'6)
[2020-12-12] MEDS: HYDROcodone/ACETAMINOPHEN 5-325 MG TAB PO PRN (17:33)
[2020-12-13] MEDS ORDERED: IBUPROFEN 600 MG TAB PO SCH (01:00)
[2020-12-13 01:29] LABS: Hematocrit 26.5 % (30.3-42.9)
[2020-12-13] MEDS: HYDROcodone/ACETAMINOPHEN 5-325 MG TAB PO PRN (09:15)
[2020-12-13] MEDS ORDERED: FERROUS SULFATE 325 MG TAB PO SCH (10:00)
[2020-12-13] MEDS ORDERED: DOCUSATE SODIUM 100 MG CAP PO SCH (10:00)
[2020-12-13 13:49] VITALS: BP 131/82
--- NOTE | 2020-12-13 13:51 | Post Anesthesia Evaluation ---
- Post Anesthesia Evaluation Patient Participated: Yes Airway Patent: Yes Stable Respiratory Function: Yes Nausea/Vomiting: No Temp > 96.8F: Yes Pain Manageable: Yes Adequeate Hydration: Yes Anesthesia Complications: No Block Receding Appropriately: Yes Patient on Ventilator: No
--- NOTE | 2020-12-13 20:09 | Progress Note ---
Assessment and Plan A: S/P Asymptomatic anemia + covid 19 p: D/C home per pt's request Subjective - Subjective Date of service: 12/13/20 Principal diagnosis: S/P Patient reports: appetite normal, voiding normally, pain well controlled, ambulating normally [place]: doing well, bottle feeding Objective - Vital Signs Latest vital signs: Vital Signs Temp Pulse Resp BP BP Pulse Ox 12/13/20 12:55 97.6 F 67 18 131/82 99 12/13/20 09:15 20 12/13/20 08:41 97.9 F 66 18 100/64 99 12/13/20 00:00 98.6 F 66 16 114/78 12/12/20 21:18 98.0 F 74 18 121/79 98 Intake and Output 12/13/20 12/13/20 12/13/20 06:59 14:59 22:59 Intake Total 300 1080 Balance 300 1080 Intake: Oral 480 Intake, Free Water 300 600 Other: Total, Intake Amount 240 # Voids Void 1 - Exam Breasts: Present: normal Abdomen: Present: normal appearance, soft, normal bowel sounds Vulva: both: normal Uterus: Present: normal, firm, fundal height below umbilicus Extremities: Present: normal - Labs Labs: Abnormal lab results 12/13/20 Range/Units 01:11 Hgb 9.0 L (10.1-14.3) gm/dl Hct 26.5 L (30.3-42.9) %
--- NOTE | 2020-12-13 20:13 | Discharge Summary ---
Providers - Providers Date of Admission: 12/11/20 22:20 Date of discharge: 12/13/20 Attending physician: YUMI HODGES JR, MD Primary care physician: ALYSE MCKENZIE MD Hospitalization Reason for admission: active labor Delivery: Episiotomy: none Laceration: none Other procedures: none complications: none Discharge diagnosis: IUP at term delivered Ray baby: male Hospital course: Pt was admitted in labor and had a w/o pp complications. See H&p, delivery summary, and pp notes. Condition at discharge: Stable Disposition: DC-01 TO HOME OR SELFCARE Plan - Discharge Medications Prescriptions: Ferrous Sulfate [Feosol 325 MG tab] 325 mg PO BID #90 tablet Ibuprofen [Motrin 600 MG tab] 600 mg PO Q6HR #30 tablet - Provider Discharge Summary Activity: routine, no sex for 6 weeks, no heavy lifting 4 weeks, no strenuous exercise Diet: other (high Fe diet) Instructions: routine Additional instructions: [] Smoking cessation referral if applicable(refer to patient education folder for contact #) [] Refer to [facility]'s [facility] Booklet Call your doctor immediately for: * Fever > 100.5 * Heavy vaginal bleeding ( >1 pad per hour) * Severe persistent headache * Shortness of breath * Reddened, hot, painful area to leg or breast * Drainage or odor from incision. * Keep incision clean and dry at all times and follow doctor's instructions regarding bathing/showering - Follow up plan Follow up: ALYSE MCKENZIE MD [Primary Care Provider] - 6 Weeks Forms: [facility] Discharge Summary, Discharge Signature Page
== END 2020-12-13 15:20 | disposition home or self-care (01) | DRG 805 ==
LOC: TRG 17:10 → APU 17:12 → LD 17:25 → TRG 22:19 → LD 22:20 → OB 12-12 17:50
PROVIDERS: ADMIT Obstetrics & Gynecology; ATTEND Obstetrics & Gynecology
PROC: 3E0R3BZ Introduction of Anesthetic Agent into Spinal Canal, Percutaneous Approach (ICD-10-PCS; principal; 2020-12-12)
PROC: 10E0XZZ Delivery of Products of Conception, External Approach (ICD-10-PCS; 2020-12-12)
PROC: 00HU33Z Insertion of Infusion Device into Spinal Canal, Percutaneous Approach (ICD-10-PCS; 2020-12-12)
PROC: 10H07YZ Insertion of Other Device into Products of Conception, Via Natural or Artificial Opening (ICD-10-PCS; 2020-12-12)
DX: O76 Abnormality in fetal heart rate and rhythm complicating labor and delivery (principal); U07.1 COVID-19; Z37.0 Single live birth; O98.53 Other viral diseases complicating the puerperium; K21.9 Gastro-esophageal reflux disease without esophagitis; Z3A.39 39 weeks gestation of pregnancy; Z88.1 Allergy status to other antibiotic agents; Z79.899 Other long term (current) drug therapy; O99.03 Anemia complicating the puerperium
CPT/HCPCS: 36415; 84112; 85014; 85018; 85027; 86592; 86850; 86900; 86901; G0378; J2590; J7120; U0003